=== PATIENT | female | born 1970 ===

== ENCOUNTER → 2024-02-27 15:37 | Outpatient (REF) | payer BC, SELFPAY ==
[2024-03-05 04:50] LABS: HPV, High Risk Detected; HPV, High Risk Source Anal
== END ==
LOC: CLAB 15:37
PROVIDERS: ATTENDING PHYSICIAN Physician Assistant
DX: Z91.89 Other specified personal risk factors, not elsewhere classified (principal)
CPT/HCPCS: 87624; 88112